=== PATIENT | female | born 1950 | race American Indian/Alaskan Native ===

== ENCOUNTER 2017-03-31 11:19 | Emergency (ER) | payer MEDICARE ==
[2017-03-31 12:47] VITALS: BMI 36.5
[2017-03-31 12:52] VITALS: O2SAT 98
--- NOTE | 2017-03-31 14:25 | C.PDOC ---
History Of Present Illness 66yo female with history of hypertension, diabetes , who has been non-compliant with blood pressure medication for the past 4 years and recently has re-started on diabetes medication. She was at her GI doctor's office for clearance for a colonoscopy scheduled next week and was noted to have marked elevated blood pressure, with systolic in the 200's. Patient was sent to ER for further evaluation. She denies any headache, chest pain, shortness of breath and offers no other medical complaints. Time Seen by Provider: 03/31/17 13:47 Chief Complaint (Nursing): High Blood Pressure History Per: Patient History/Exam Limitations: no limitations Current Symptoms Are (Timing): Still Present Associated Symptoms: denies: Chest Pain, Headache Past Medical History Reviewed: Historical Data, Nursing Documentation, Vital Signs Vital Signs: Last Vital Signs Temp 98.5 F 03/31/17 16:40 Pulse 72 03/31/17 16:40 Resp 20 03/31/17 16:40 BP 181/102 H 03/31/17 16:40 Pulse Ox 98 04/03/17 05:18 - Medical History PMH: Diabetes, HTN Surgical History: No Surg Hx Family History: States: No Known Family Hx - Social History Hx Alcohol Use: No Hx Substance Use: No - Immunization History Hx Tetanus Toxoid Vaccination: No Hx Influenza Vaccination: No Hx Pneumococcal Vaccination: No Review Of Systems Cardiovascular: Positive for: Other (elevated blood pressure). Negative for: Chest Pain, Light Headedness Respiratory: Negative for: Shortness of Breath Neurological: Negative for: Headache Physical Exam - Physical Exam Appears: Non-toxic Skin: Warm, Dry Head: Atraumatic, Normacephalic Eye(s): bilateral: Normal Inspection Neck: Supple Chest: Symmetrical Cardiovascular: Rhythm Regular, No Murmur Respiratory: No Decreased Breath Sounds, No Wheezing Neurological/Psych: Oriented x3, Normal Speech, Normal Cognition, Normal Motor, Normal Sensation ED Course And Treatment - Laboratory Results Result Diagrams: 03/31/17 14:48 03/31/17 14:48 ECG: Interpreted By Me, Viewed By Me Interpretation Of ECG: Normal sinus rhtyhm. Moderate voltage criteria for LVH, may be normal variant. Rate From EC O2 Sat by Pulse Oximetry: 98 (RA) Pulse Ox Interpretation: Normal Medical Decision Making Medical Decision Making: Impression: Hypertension Plan: -- Discussed with patient regarding importance of appropriate blood pressure. Informed that she will not be able to get anesthesia due to an elevated blood pressure during surgery. Pt is asymptomatic, no headache, no dizziness. no blurred vision. -- EKG -- CMP -- CBC 420 pm discussed with pt's pmd. Dr Jarvis; she 3wants pt started on valsartan 160 mg qd and f/u next week with her in office. 525 pm pt asymptomatic; will not give any medications for bp here in ed, to be discharged with valsartan as per pmd. Disposition Discussed With Dr.: Niya Jarvis Doctor Will See Patient In The: Office Counseled Patient/Family Regarding: Studies Performed, Diagnosis, Need For Followup, Rx Given - Disposition Referrals: Niya Jarvis MD [Staff Provider] - Disposition: HOME/ ROUTINE Disposition Time: 17:27 Condition: STABLE Additional Instructions: Please take medication as prescribed. Follow up with Dr Jarvis in a few days to re-evaluate blood pressure. Take medicine at same time every day. Show Dr Jarvis your cxr report for further outpatient follow up. Prescriptions: Valsartan [Diovan] 160 mg PO DAILY #30 tab Instructions: Hypertension (ED) Forms: [facility] (Arabic), General Discharge Instructions - Clinical Impression Clinical Impression: Hypertension - PA / CABLE INSTALLER / Resident Statement MD/DO has reviewed & agrees with the documentation as recorded. - Scribe Statement The provider has reviewed the documentation as recorded by the Scribe (Nichole Flores) Provider Scribe Attestation: All medical record entries made by the Scribe were at my direction and personally dictated by me. I have reviewed the chart and agree that the record accurately reflects my personal performance of the history, physical exam, medical decision making, and the department course for this patient. I have also personally directed, reviewed, and agree with the discharge instructions and disposition.
[2017-03-31 14:51] LABS: BASO # 0.1 K/uL (0.0-0.2); BASO % 1.4 % (0.0-2.0); EOS # 0.1 K/uL (0.0-0.7); EOS % 1.7 % (0.0-4.0); HEMOGLOBIN 14.1 g/dL (11.0-16.0); LYMPH # 2.7 K/uL (1.0-4.3); LYMPH % 33.5 % (20.0-40.0); MEAN CELL VOLUME 89.3 fL (81.0-99.0); MEAN CORPUSCULAR HEMOGLOBIN 31.4 pg (27.0-31.0); MEAN CORPUSCULAR HGB CONC 35.2 g/dL (33.0-37.0); MEAN PLATELET VOLUME 8.8 fL (7.2-11.7); MONO # 0.5 K/uL (0.0-0.8); MONO % 5.9 % (0.0-10.0); NEUT # 4.6 K/uL (1.8-7.0); NEUT % 57.5 % (50.0-75.0); RBC 4.47 Mil/uL (3.80-5.20); WHITE BLOOD COUNT 8.1 K/uL (4.8-10.8)
[2017-03-31 15:04] LABS: ALB/GLOB RATIO 1.1 (1.0-2.1); ALT/SGPT 30 U/L (9-52); AST/SGOT 26 U/L (14-36); BLOOD UREA NITROGEN 12 mg/dL (7-17); CALCIUM 8.8 mg/dl (8.6-10.4); GFR AFRICAN-AMERICAN > 60; GFR NON-AFRICAN AMERICAN > 60
--- NOTE | 2017-03-31 16:30 | RAD ---
HISTORY: elevated bp COMPARISON: None available. TECHNIQUE: Chest PA and lateral FINDINGS: Examination limited by habitus. LUNGS: No focal consolidation. Please note that chest x-ray has limited sensitivity for the detection of pulmonary masses. PLEURA: No significant pleural effusion identified. No definite pneumothorax . 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 Heart size appears within normal limits. OSSEOUS STRUCTURES: Degenerative changes of the spine including confluent anterior osteophyte formation. VISUALIZED UPPER ABDOMEN: Unremarkable. OTHER FINDINGS: None. 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 Correlate clinically.
[2017-03-31 16:39] VITALS: BP 181/102; PULSE 72; TEMP 98.5
[2017-03-31 16:40] VITALS: RESP 20
--- NOTE | 2017-04-02 12:11 | CARD ---
APPROVED REPORT EKG Measurement Heart [id number] MD [id number] <Conclusion> Normal sinus rhythm Moderate voltage criteria for LVH, may be normal variant Borderline ECG
== END 2017-03-31 17:30 | disposition home or self-care (01) ==
LOC: C.ER 11:19
DX: I10 Essential (primary) hypertension (principal)

== ENCOUNTER 2017-04-08 07:53 | Day surgery (SDC) | payer MEDICARE ==
[2017-04-08] MEDS ORDERED: Propofol 10 mg/ml Inj (20 ML) ONE (10:08)
[2017-04-08 10:56] VITALS: TEMP 98; O2SAT 100
[2017-04-08 11:08] VITALS: RESP 12
[2017-04-08 11:58] VITALS: PULSE 66
[2017-04-08 12:00] VITALS: BP 146/75
== END 2017-04-08 11:59 | disposition home or self-care (01) ==
LOC: C.ENDO 07:53
PROVIDERS: ATTEND Internal Medicine Gastroenterology
DX: Z12.11 Encounter for screening for malignant neoplasm of colon (principal); Z79.899 Other long term (current) drug therapy; E11.9 Type 2 diabetes mellitus without complications; I10 Essential (primary) hypertension; Z79.82 Long term (current) use of aspirin; Z79.84 Long term (current) use of oral hypoglycemic drugs; K59.00 Constipation, unspecified; D12.3 Benign neoplasm of transverse colon; K64.8 Other hemorrhoids
CPT/HCPCS: 45380; 82948; 88305; J2704